=== PATIENT | male | born 1935 ===

== ENCOUNTER 2017-09-01 07:58 | Day surgery (SDC) | payer MEDICARE, BC, OTHER ==
[~2017-09-01 07:58] MED LIST: PROPOFOL 500 MG/50 ML EMU IV ONE
[2017-09-01 10:22] VITALS: O2SAT 94
[2017-09-01 10:42] VITALS: BP 125/76; PULSE 62; RESP 20; TEMP 97
== END 2017-09-01 10:50 | disposition home or self-care (01) | DRG 951 ==
LOC: SURG 07:58
PROVIDERS: ATTEND Surgery
DX: Z12.11 Encounter for screening for malignant neoplasm of colon (principal); K57.30 Diverticulosis of large intestine without perforation or abscess without bleeding; Z86.010 Personal history of colon polyps
CPT/HCPCS: J2704